=== PATIENT | male | born 1990 | race Caucasian/White ===

== ENCOUNTER 2018-01-26 15:33 | Emergency (ER) | payer OTHER ==
[2018-01-26] MEDS ORDERED: KETOROLAC 30 MG/1 ML SDV IVP ONE (15:47)
[2018-01-26] MEDS ORDERED: NS 1,000 ML IV ONE (15:47)
--- NOTE | 2018-01-26 15:47 | EDPHY ---
H & P Time Seen by Provider: 01/26/18 15:39 HPI/ROS: CHIEF COMPLAINT: Right flank pain HISTORY OF PRESENT ILLNESS: The patient is a 28-year-old male with no past medical history presents emergency department with right flank pain x1 week. He states the pain is fairly constant. There is no radiation. The pain is moderate. He has had 2 episodes of nonbloody emesis. He feels, at times, it is difficult to start his urine flow. He has no dysuria or frequency. No hematuria. The triage note states the patient has abdominal pain. However, the patient denies any abdominal pain to me. Patient denies fevers or chills. No recent trauma. He does not feels positional or worse with movement. REVIEW OF SYSTEMS: My complete review of systems is negative except as mentioned in the HPI. Past Medical/Surgical History: Negative Past surgical history: Negative Social history: The patient denies tobacco use. He smokes marijuana. Smoking Status: Never smoked Physical Exam: Vitals noted GENERAL: Well-appearing, in no acute distress, alert. HEENT: Eyes normal to inspection, normal pharynx, no signs of dehydration. NECK: [No thyromegaly, no lymphadenopathy, supple. RESPIRATORY: Clear to auscultation bilaterally, no rales, rhonchi or wheezing. CVS: Regular rate and rhythm, no rubs, murmurs, or gallops. ABDOMEN: Soft, nontender, nondistended, no organomegaly. BACK: Normal to inspection, no CVA tenderness. Normal SKIN: Normal color, no rash, warm, dry. No pallor. EXTREMITIES: No pedal edema, no joint swelling. NEURO/PSYCH: Alert and oriented, normal mood and affect. Constitutional: Initial Vital Signs Temperature (C) 36.4 C 01/26/18 15:34 Heart Rate 56 L 01/26/18 15:34 Respiratory Rate 18 01/26/18 15:34 Blood Pressure 122/66 H 01/26/18 15:34 O2 Sat (%) 98 01/26/18 15:34 O2 Delivery Mode Room Air Allergies/Adverse Reactions: No Known Allergies Allergy (Unverified 01/26/18 15:37) Home Medications: Medication Instructions Recorded Cephalexin [Keflex (*)] 500 mg PO QID 7 Days cap 01/26/18 Hydrocodone/APAP 5/325 [[place] 1 - 2 tab PO Q4 #13 tab 01/26/18 5/325 (RX)] Ondansetron Odt [Zofran Odt 4 mg 4 mg PO Q4PRN PRN #7 tab 01/26/18 (*)] Tamsulosin HCl [Flomax] 0.4 mg PO DAILY #4 cap 01/26/18 Medical Decision Making - Diagnostics Imaging Results: Imaging Impressions Abdomen/Pelvis CT 01/26/18 15:47 Impression: 1. 7-mm right ureterovesical junction stone with moderate obstructive uropathy. 2. Left nephrolithiasis. 3. Additional findings as above. Findings discussed with Dr. Yumiko Galicia on January 26, 2018 at 1617 hours. Attention: This CT examination is specifically designed to evaluate patients who are clinically suspected of having acute obstructive uropathy. This examination does not use radiographic contrast, and as such, provides only a limited evaluation of the abdomen, pelvis and retroperitoneum. If there is further clinical suspicion for pathological conditions other than obstructive uropathy, a complete CT evaluation of the abdomen and pelvis utilizing intravenous and oral contrast should be considered. ED Course/Re-evaluation: In the emergency department I discussed possible etiologies with the patient. I answered all his questions. IV was placed. The patient was given normal saline 1 L IV for hydration. He was given Toradol 30 mg IV for pain control. Laboratory studies and CT scan were ordered. Patient's CBC is normal. White count is normal. His chemistry panel was unremarkable. He has normal renal function. He had a mildly elevated T bili of 1.8. UA was positive for red cells. There were few white cells present. CT of the abdomen pelvis: Please refer the dictated report. The patient has a 7 mm stone at the right UVJ. There is moderate hydro. I rechecked the patient on numerous occasions while here. He is stable throughout his stay. His pain was controlled. I discussed the findings with the patient. I discussed the plan in the need for close follow-up with Urology. I discussed the case with the patient's father who is a plastic surgeon. Patient will be discharged with Flomax, Vicodin and Zofran. He will be given Keflex. I think it is unlikely that he has an infection but he does have moderate hydro with some white cells in his urine. Patient was noted to have a mildly elevated T bilirubin. This will need to b followed up by a primary care physician after the kidney study she resolved. Patient was informed to return to the emergency department with increasing pain, vomiting, fever or any other concerns. Differential Diagnosis: My differential includes but is not limited to urinary tract infection, pyelonephritis, ureterolithiasis, nephrolithiasis, mass, malignancy, muscle strain, disc herniation - Data Points Laboratory Results: Laboratory Results 01/26/18 15:35 01/26/18 15:35 01/26/18 01/26/18 01/26/18 17:32 15:35 15:35 WBC 8.51 10^3/uL 10^3/uL (3.80-9.50) RBC 5.16 10^6/uL 10^6/uL (4.40-6.38) Hgb 15.5 g/dL g/dL (13.7-17.5) Hct 45.4 % % (40.0-51.0) MCV 88.0 fL fL (81.5-99.8) MCH 30.0 pg pg (27.9-34.1) MCHC 34.1 g/dL g/dL (32.4-36.7) RDW 12.3 % % (11.5-15.2) Plt Count 261 10^3/uL 10^3/uL (150-400) MPV 9.4 fL fL (8.7-11.7) Neut % (Auto) 67.1 % % (39.3-74.2) Lymph % (Auto) 23.7 % % (15.0-45.0) [place] % (Auto) 7.3 % % (4.5-13.0) Eos % (Auto) 1.1 % % (0.6-7.6) Baso % (Auto) 0.6 % % (0.3-1.7) Nucleat RBC Rel Count 0.0 % % (0.0-0.2) Absolute Neuts (auto) 5.71 10^3/uL 10^3/uL (1.70-6.50) Absolute Lymphs (auto) 2.02 10^3/uL 10^3/uL (1.00-3.00) Absolute Monos (auto) 0.62 10^3/uL 10^3/uL (0.30-0.80) Absolute Eos (auto) 0.09 10^3/uL 10^3/uL (0.03-0.40) Absolute Basos (auto) 0.05 10^3/uL 10^3/uL (0.02-0.10) Absolute Nucleated RBC 0.00 10^3/uL 10^3/uL (0-0.01) Immature Gran % 0.2 % % (0.0-1.1) Immature Gran # 0.02 10^3/uL 10^3/uL (0.00-0.10) Sodium 144 mEq/L mEq/L (135-145) Potassium 3.7 mEq/L mEq/L (3.5-5.2) Chloride 102 mEq/L mEq/L (97-110) Carbon Dioxide 25 mEq/l mEq/l (22-31) Anion Gap 17 mEq/L H mEq/L (8-16) BUN 16 mg/dL mg/dL (7-23) Creatinine 1.0 mg/dL mg/dL (0.7-1.3) Estimated GFR > 60 Glucose 91 mg/dL mg/dL (70-100) Calcium 10.0 mg/dL mg/dL (8.5-10.4) Total Bilirubin 1.8 mg/dL H mg/dL (0.1-1.4) Conjugated Bilirubin 0.3 mg/dL mg/dL (0.0-0.5) Unconjugated Bilirubin 1.5 mg/dL H mg/dL (0.0-1.1) AST 28 IU/L IU/L (17-59) ALT 46 IU/L IU/L (21-72) Alkaline Phosphatase 69 IU/L IU/L (38-126) Total Protein 8.0 g/dL g/dL (6.3-8.2) Albumin 5.0 g/dL g/dL (3.5-5.0) Lipase 80 IU/L IU/L (23-300) Urine Color YELLOW Urine Appearance MODERATELY TURBID Urine pH 6.0 (5.0-7.5) Ur Specific [place] 1.025 (1.002-1.030) Urine Protein 1+ H (NEGATIVE) Urine Ketones 2+ H (NEGATIVE) Urine Blood 2+ H (NEGATIVE) Urine Nitrate NEGATIVE (NEGATIVE) Urine Bilirubin NEGATIVE (NEGATIVE) Urine Urobilinogen NEGATIVE EU EU (0.2-1.0) Ur Leukocyte Esterase NEGATIVE (NEGATIVE) Urine RBC 50-182 /hpf H /hpf (0-3) Urine WBC 3-5 /hpf H /hpf (0-3) Ur Epithelial Cells TRACE /lpf /lpf (NONE-1+) Urine Mucus 2+ /lpf H /lpf (NONE-1+) Urine Glucose NEGATIVE (NEGATIVE) Medications Given: Discontinued Medications Sodium Chloride (Ns) 1,000 mls @ 0 mls/hr IV EDNOW ONE; Wide Open PRN Reason: Protocol Stop: 01/26/18 15:48 Last Admin: 01/26/18 16:02 Dose: 1,000 mls Ketorolac Tromethamine (Toradol) 30 mg IVP EDNOW ONE Stop: 01/26/18 15:48 Last Admin: 01/26/18 16:02 Dose: 30 mg Departure - Departure Disposition: Home, Routine, Self-Care Clinical Impression: Right flank pain, Ureterolithiasis Condition: Good Instructions: Flank Pain (ED) Additional Instructions: You need follow-up with Urology (Dr. Wooten). You been given contact information on the discharge paperwork. Call Monday morning to make an appointment. Take her medications as directed. Your CT scan showed a 7 mm kidney stone. Of note, you have a mildly elevated total bilirubin. This will need follow-up with the primary care physician (Dr. Cleaning) once your kidney stone issue resolved. Return with increasing pain, fever, vomiting or any other concerns. Referrals: Amy Cleaning MD [Medical Doctor] - 5-7 days, call for appt. Jun Wooten MD [Medical Doctor] - 5-7 days, call for appt. Prescriptions: Cephalexin [Keflex (*)] 500 mg PO QID 7 Days cap Hydrocodone/APAP 5/325 [[place] 5/325 (RX)] 1 - 2 tab PO Q4 #13 tab Ondansetron Odt [Zofran Odt 4 mg (*)] 4 mg PO Q4PRN PRN #7 tab PRN Reason: For Nausea & Vomiting Tamsulosin HCl [Flomax] 0.4 mg PO DAILY #4 cap
[2018-01-26 15:52] LABS: PLATELET COUNT 261 10^3/uL (150-400)
[2018-01-26] MEDS ORDERED: CEPHALEXIN 500 MG CAP PO ONE (19:07)
[2018-01-26 19:13] VITALS: BP 129/75
== END 2018-01-26 19:22 | disposition home or self-care (01) ==
DX: N20.1 Calculus of ureter (principal); E86.9 Volume depletion, unspecified
CPT/HCPCS: 96374; J1885

== ENCOUNTER → 2018-01-30 | Outpatient (CLI) | payer OTHER | LOC: FIMAGING 11:03 | PROVIDERS: ATTEND Specialist | DX: N20.1 Calculus of ureter (principal); I87.8 Other specified disorders of veins ==

== ENCOUNTER → 2018-02-06 | Outpatient (CLI) | payer OTHER | LOC: FIMAGING 09:15 | PROVIDERS: ATTEND Specialist | DX: Z13.89 Encounter for screening for other disorder (principal) ==